=== PATIENT | female | born 2000 | race Caucasian/White ===

== ENCOUNTER 2023-08-27 13:26 | Emergency (ER) | payer MEDICAID ==
[2023-08-27] MEDS ORDERED: Sodium Chloride 0.9% 1,000 ML IV ONE (14:23)
[2023-08-27] MEDS ORDERED: Sodium Chloride 0.9% 10 ML Syringe FLUSH PRN (14:23)
[2023-08-27] MEDS ORDERED: Ondansetron 4 MG/2 ML SDV IVPUSH ONE (14:23)
== END 2023-08-27 16:04 | disposition home or self-care (01) ==
LOC: JP.ED 13:26
DX: O21.0 Mild hyperemesis gravidarum (principal); Z86.16 Personal history of COVID-19; Z3A.12 12 weeks gestation of pregnancy
CPT/HCPCS: 96361; 96374; 99283; J2405; J7030